=== PATIENT | male | born 1980 | race Caucasian/White ===

== ENCOUNTER 2017-05-15 07:36 | Emergency (ER) | payer BC ==
[~2017-05-15] VITALS: Ht 177.8 cm; Wt 103.2 kg
[2017-05-15 07:38] VITALS: BP 144/87; PULSE 81; TEMP 98.3
[2017-05-15 08:43] LABS: BASO % 0.3 % (0.0-2.0); EOS # 0.1 (0.0-0.7); EOS % 0.9 % (0-4.0); GRAN # 6.1 (1.4-6.5); GRAN % 71.1 % (42.2-75.2); HEMATOCRIT 45.7 % (42.0-52.0); HEMOGLOBIN 15.2 g/dl (13.5-18.0); LYMPH # 1.8 (1.2-3.4); LYMPH % 20.3 % (20.0-51.0); MEAN CELL VOLUME 89 fl (80.0-100.0); MEAN CORPUSCULAR HEMOGLOBIN 30 pg (27.0-31.0); MEAN CORPUSCULAR HGB CONC 33 g/dl (33.0-37.0); MEAN PLATELET VOLUME 9.3 fl (7.4-10.4); MONO # 0.6 (0.1-0.6); MONO % 6.9 % (1.7-9.3); PLATELET COUNT 271 K/mm3 (130-400); RED BLOOD COUNT 5.11 M/mm3 (4.20-5.60); REDCELL DISTRIBUTION WIDTH-CV 12.9 % (11.5-14.5)
[2017-05-15] MEDS ORDERED: CRUTCHES MC (08:59)
[2017-05-15 09:08] LABS: ERYTHROCYTE SEDIMENTATION RATE 7 mm/hr (0-15)
== END 2017-05-15 09:10 | disposition home or self-care (01) ==
LOC: COL.ER 07:36
PROVIDERS: Physician Assistant
DX: M25.561 Pain in right knee (principal)
CPT/HCPCS: J1885; L1830